=== PATIENT | female | born 1960 | race Caucasian/White ===

== ENCOUNTER 2018-03-17 09:13 | Emergency (ER) | payer MEDICARE, OTHER ==
[2018-03-17] MEDS ORDERED: methylPREDNISolone Sodium Succinate 40 MG/1 ML SDV IM ONE (09:54)
[2018-03-17] MEDS ORDERED: diphenhydrAMINE 25 MG Cap PO ONE (09:54)
--- NOTE | 2018-03-17 10:02 | EDM.PDOC ---
ED HPI GENERAL MEDICAL PROBLEM - General Chief Complaint: Skin Complaint Stated Complaint: RASH ALL OVER BODY Time Seen by Provider: 03/17/18 09:50 Source of Information: Reports: Patient, RN Notes Reviewed History Limitations: Reports: No Limitations - History of Present Illness INITIAL COMMENTS - FREE TEXT/NARRATIVE: 58-year-old female presents to the emergency department with complaint of rash, she states the rash is just developed over the last 24 hours encompasses her trunk upper and lower extremities denies any shortness of breath or difficulty breathing no throat swelling she is unsure of any new medications foods clothing she cannot relate the rash to any new products - Related Data Allergies Allergy/AdvReac Type Severity Reaction Status Date / Time bee venom protein (honey bee) Allergy Swelling Verified 03/17/18 09:26 bupropion HCl [From Zyban] Allergy Nausea Verified 10/23/13 13:27 levofloxacin [From Levaquin] Allergy Burning Verified 10/23/13 13:27 nicotine Allergy Nausea Verified 10/23/13 13:27 oxycodone [Oxycodone] Allergy Nausea Verified 10/23/13 13:27 Home Meds: Home Meds Amitriptyline [Elavil] 50 mg PO DAILY 05/02/14 [History] Aspirin [Dang Chewable Aspirin] 81 mg PO DAILY 05/02/14 [History] Calcium Carbonate [Calcium] 500 mg PO DAILY 05/02/14 [History] Hydrochlorothiazide 12.5 mg PO DAILY 05/02/14 [History] Hydrocodone/Acetaminophen [Vicodin 5-300 mg Tablet] 5 mg PO Q6HR PRN 05/02/14 [ History] Pantoprazole [ProTONIX Granules] 40 mg PO BID 05/02/14 [History] Potassium Bicarbonate/Cit Ac [Potassium 25 Meq Tablet Eff] 25 meq PO DAILY 05/02 [History] Pravastatin [Pravachol] 40 mg PO DAILY 05/02/14 [History] predniSONE [Prednisone] 20 mg PO DAILY #5 tablet 03/17/18 [Rx] Past Medical History Respiratory History: Reports: Asthma, COPD Gastrointestinal History: Reports: GERD, Irritable Bowel Syndrome [employer]ICAL SERVICES PROFESSIONAL History: Reports: Polycystic Ovaries Musculoskeletal History: Reports: Fracture Dermatologic History: Reports: Other (See Below) Other Dermatologic History: HIVES - Infectious Disease History Infectious Disease History: Reports: Chicken Pox, Measles, Mumps - Past Surgical History Female Surgical History: Reports: Cystectomy, Other (See Below) Other Female Surgeries/Procedures: OVARIAN CYST Neurological Surgical History: Reports: Discectomy, Other (See Below) Other Neurological Surgeries/Procedures: NECK FRACTURE Musculoskeletal Surgical History: Reports: Knee Replacement Social & Family History - Tobacco Use Smoking Status *Q: Former Smoker Years of Tobacco use: 42 Packs/Tins Daily: 2 Used Tobacco, but Quit: Yes Month/Year Tobacco Last Used: 01/2012 - Caffeine Use Caffeine Use: Reports: Coffee - Recreational Drug Use Recreational Drug Use: No ED ROS GENERAL - Review of Systems Review Of Systems: See Below Constitutional: Reports: No Symptoms Respiratory: Reports: No Symptoms Cardiovascular: Reports: No Symptoms GI/Abdominal: Reports: No Symptoms Skin: Reports: Rash ED EXAM, SKIN/RASH Exam: See Below Exam Limited By: No Limitations General Appearance: Alert, WD/WN, No Apparent Distress Respiratory/Chest: No Respiratory Distress, Lungs Clear, Normal Breath Sounds, No Accessory Muscle Use Cardiovascular: Regular Rate, Rhythm, No Murmur Skin: Warm, Rash, Other (Hives trunk upper and lower extremities) Course - Vital Signs Last Recorded V/S: Last Vital Signs Temp 95.7 F 03/17/18 09:43 Pulse 100 03/17/18 09:43 Resp 16 03/17/18 09:43 BP 127/78 03/17/18 09:43 Pulse Ox 96 03/17/18 09:43 - Orders/Labs/Meds Meds: Medications Discontinued Medications Generic Name Dose Route Start Last Admin Trade Name Sreeq PRN Reason Stop Dose Admin Diphenhydramine HCl 25 mg 03/17/18 09:54 Benadryl PO 03/17/18 09:55 ONETIME ONE Methylprednisolone Sodium Succinate 40 mg 03/17/18 09:54 Solu-Medrol IM 03/17/18 09:55 ONETIME ONE Departure - Departure Time of Disposition: 10:02 Disposition: Home, Self-Care 01 Condition: Good Clinical Impression: Hives - Discharge Information Prescriptions: predniSONE [Prednisone] 20 mg PO DAILY #5 tablet Referrals: Dashawn Plummer MD [Primary Care Provider] - Additional Instructions: Take full course of steroids, Please followup with your primary care provider in 5-7 days if not better, please call return to the emergency department with worsening of symptoms. - Assessment/Plan Plan: Assessment Acuity = acute Site and laterality = hives Etiology = unclear etiology Manifestations = pruritus Location of injury = Home Lab values = none Plan Treated with Benadryl 25 mg by mouth now and 40 mg Solu-Medrol IM 1, prescription written for prednisone 20 mg once a day for 5 days follow-up with primary care in 5-7 days if no improvement This note was dictated using [employer] voice recognition software please call with any questions on syntax or grammar.
== END 2018-03-17 10:21 | disposition home or self-care (01) ==
LOC: JP.ED 09:13
DX: L50.9 Urticaria, unspecified (principal); J44.9 Chronic obstructive pulmonary disease, unspecified; Z87.891 Personal history of nicotine dependence; Z88.8 Allergy status to other drugs, medicaments and biological substances; Z79.82 Long term (current) use of aspirin
CPT/HCPCS: 96372; 99283; A9270; J2920